=== PATIENT | male | born 1975 | race Two or more races ===

== ENCOUNTER 2019-09-22 05:54 | Inpatient (IN) | payer OTHER ==
--- NOTE | 2019-09-21 16:00 | NUR ---
[employer] translation services used to obtained medical history with machine bender Melo ID # [id number].
[2019-09-22] VITALS (18 sets, daily range): BP systolic 112–133; BP diastolic 65–78
[~2019-09-22] VITALS: Ht 165.1 cm; Wt 100.7 kg
[2019-09-22] MEDS ORDERED: fentaNYL 100 mcg/2 mL IV ONE (07:02)
[2019-09-22] MEDS ORDERED: Midazolam 2mg/2ml Inj ONE (07:02)
[2019-09-22] MEDS ORDERED: Lidocaine 1% MPF 10mg/ml 5ml ONE (07:03)
[2019-09-22] MEDS ORDERED: Succinylcholine 20mg/ml 10ml vial ONE (07:07)
[2019-09-22] MEDS ORDERED: Rocuronium Bromide 50mg/5ml Inj IV ONE (07:07)
[2019-09-22] MEDS ORDERED: Heparin 5000 units/ml inj ONE (07:21)
[2019-09-22] MEDS ORDERED: Thrombin 5000 units TOPIC ONE ×2 (07:21→07:22)
[2019-09-22] MEDS ORDERED: Gelfoam Size TOPIC ONE (07:22)
[2019-09-22] MEDS ORDERED: Bupivacaine w/Epi 0.5% 30ml Vial INJ ONE (07:22)
[2019-09-22] MEDS ORDERED: Bacitracin 50000 Units Vial ONE ×2 (07:22→10:22)
[2019-09-22] MEDS ORDERED: LR 1000ml ONE (07:30)
[2019-09-22] MEDS ORDERED: Propofol 1,000mg/ 100ml btl IV ONE (07:30)
[2019-09-22] MEDS ORDERED: Sterile Water Irrig 1000ml IRRIG ONE (07:30)
[2019-09-22] MEDS ORDERED: NS Irrig 1000ml ONE (07:30)
--- NOTE | 2019-09-22 07:45 | Pre-Procedure Note/Attestation ---
Pre-Procedure Note/Attestation Complete Prior to Procedure Planned Procedure: not applicable Procedure Narrative: L5-S1 fusion Indications for Procedure Pre-Operative Diagnosis: Disc pain Attestation I attest that I discussed the nature of the procedure; its benefits; risks and complications; and alternatives (and the risks and benefits of such alternatives ), prior to the procedure, with the patient (or the patient's legal billing representative). I attest that, if there was a reasonable possibility of needing a blood transfusion, the patient (or the patient's legal billing representative) was given the [facility] standardized written summary, pursuant to the [place] Blood Safety Act ([place] Health and Safety Code # 1645, as amended). I attest that I re-evaluated the patient just prior to the surgery and that there has been no change in the patient's H&P, except as documented below: ESTEPHANIA CELIS Sep 22, 2019 07:45
[2019-09-22] MEDS ORDERED: NS Irrig 1000ml IRRIG ONE ×3 (07:56→10:50)
--- NOTE | 2019-09-22 08:39 | Anethesia Preoperative Eval ---
Anesthesia Pre-op PMH/ROS General Date of Evaluation: Sep 22, 2019 Time of Evaluation: 07:20 Anesthesiologist: Fredis ASA Score: ASA 2 Mallampati Score Class I : Soft palate, uvula, fauces, pillars visible Class II: Soft palate, uvula, fauces visible Class III: Soft palate, base of uvula visible Class IV: Only hard plate visible Mallampati Classification: Class II Surgeon: Gravory Diagnosis: Lumbar radiculopathy Surgical Procedure: Anterior and posterior discectomy and fusion Anesthesia History: none Family History: no anesthesia problems Allergies: Coded Allergies: No Known Allergies (Unverified , 09/21/19) Medications: see eMAR Patient NPO?: Yes NPO Date: Sep 21, 2019 NPO Time: 1900 Past Medical History Cardiovascular: Denies: HTN, CAD, [place], valve dz, arrhythmia, other Pulmonary: Denies: asthma, COPD, YANY, other Gastrointestinal/Genitourinary: Reports: GERD - mild; Denies: CRI, ESRD, other Neurologic/Psychiatric: Reports: other - chronic pain; Denies: dementia, CVA, depression/anxiety, TIA Endocrine: Denies: DM, hypothyroidism, steroids, other HEENT: Denies: cataract (L), cataract (R), glaucoma, [place] RESERVATION (L), [place] RESERVATION (R), other Hematology/Immune: Denies: anemia, DVT, bleeding disorder, other Musculoskeletal/Integumentary: Denies: OA, RA, DJD, DDD, edema, other Other: other - overweight PMH Narrative: as above PSxH Narrative: None Anesthesia Pre-op Phys. Exam Physician Exam Last Vital Signs Date Time Temp Pulse Resp B/P (MAP) Pulse Ox O2 Delivery O2 Flow Rate FiO2 09/22/19 06:50 97.8 61 20 120/75 (90) 98 09/22/19 06:35 Room Air Constitutional: NAD Neurologic: CN 2-12 intact Cardiovascular: RRR, no M/R/G Respiratory: CTA Gastrointestinal: S/NT/ND Airway Exam Mallampati Score: Class II MO: full Neck: flexible ROM: full Teeth: missing Dentures: no upper, no lower Anesthesia Pre-op A/P Labs see chart Studies Pre-op Studies: EKG - NSR, CXR - WNL Risk Assessment & Plan Assessment: ASA 2 Plan: GA with ETT neuromonitoring Status Change Before Surgery: No Pre-Antibiotics Drug: Ancef 2gr. Given Within 1 Hr of Incision: Yes Time Given: 08:10 Abhay Mcneal MD Sep 22, 2019 08:39
[2019-09-22] MEDS ORDERED: Acetaminophen (Non formulary) 100 ML IV ONE (08:45)
[2019-09-22] MEDS ORDERED: Morphine Sulfate 10mg/ml Inj ONE (08:47)
[2019-09-22] MEDS ORDERED: Sodium Chloride 10ml vial INJ ONE (08:48)
[2019-09-22] MEDS ORDERED: Glycopyrrolate 0.2mg/ml 1ml Vial ONE (08:48)
[2019-09-22] MEDS ORDERED: Ketorolac 30mg Inj ONE (08:48)
[2019-09-22] MEDS ORDERED: LR 1000ml 1,000 ML IVLG SCH (10:37)
[2019-09-22] MEDS ORDERED: DiphenhydrAMINE 25mg Tab ORAL PRN (10:45)
[2019-09-22] MEDS ORDERED: Cyclobenzaprine 10mg Tab ORAL PRN (10:45)
[2019-09-22] MEDS ORDERED: Ketorolac 30mg Inj IV PRN (10:45)
[2019-09-22] MEDS ORDERED: HYDROmorphone 1mg/ml Carpuject SUBQ PRN (10:45)
[2019-09-22] MEDS ORDERED: HYDROcodone/Acetamin 10/325 tab ORAL PRN (10:45)
[2019-09-22] MEDS ORDERED: Meperidine 25mg/0.5ml Inj (FOR RIGORS ONLY) IV PRN (10:45)
[2019-09-22] MEDS ORDERED: oxyCODONE 5mg IR tab ORAL PRN ×2 (10:45→11:00)
[2019-09-22] MEDS ORDERED: Hydromorphone 0.5mg/0.5ml inj IVP PRN (10:45)
[2019-09-22] MEDS ORDERED: DiphenhydrAMINE 50mg/ml Inj IVP PRN (10:45)
[2019-09-22] MEDS ORDERED: Propofol 200mg/20ml IV ONE ×3 (10:53→12:34)
[2019-09-22] MEDS ORDERED: PCA HYDROmorphone 1mg/ml 30 ML IV PRN (11:45)
[2019-09-22] MEDS ORDERED: Rate Change PCA 1 Each MISC PRN (11:45)
--- NOTE | 2019-09-22 11:48 | NUR ---
CASE MANAGEMENT:REVIEW 43 YR OLD MALE HERE FOR ELECTIVE SURGERY SI: DISC PAIN 97.8 61 20 120/75 98% ON RA IS: TO SURGERY LUMBAR DISCECTOMY AND FUSION : CURRENTLY IN SURGERY
--- NOTE | 2019-09-22 13:10 | Brief Operative Note ---
Immediate Post Operative Note Operative Note Pre-op Diagnosis: Disc pain Procedure: L5-S1 ALIF and post fusion Post-op Diagnosis: LBP Post-op Diagnosis: same as pre-op Surgeon: Jacky Biggs Pole Maker: Elias Sales Additional Surgeons: Rashida Arias Anesthesiologist: Dr. Piña Anesthesia: general Specimen: none Complications: none Condition: stable Fluids: See anesthesia Estimated Blood Loss: volume - 100 Drains: none Implant(s) used?: Yes - Pedicla screws, Rods, ALIF Cage and screws, BMP ESTEPHANIA BIGGS Sep 22, 2019 13:10
--- NOTE | 2019-09-22 13:32 | Diagnostic Imaging Report ---
Indication: Intraoperative imaging COMPARISON: None FINDINGS: 2 fluoroscopic images were obtained intraoperatively. Images showing the L5-S1 fusion and discectomy. Fluoroscopic time 84 seconds. IMPRESSION: Intraoperative imaging as described above
--- NOTE | 2019-09-22 13:32 | Immediate Post-Op Evaluation ---
Immediate Post-Op Evalulation Immediate Post-Op Evalulation Procedure: L5-S1 anterior discectomy fusion and posterior pedicle screws fusion Date of Evaluation: Sep 22, 2019 Time of Evaluation: 13:31 IV Fluids: 1400 Blood Products: none Estimated Blood Loss: 100 Urinary Output: 150 Blood Pressure Systolic: 120 Blood Pressure Diastolic: 64 Pulse Rate: 72 Respiratory Rate: 20 O2 Sat by Pulse Oximetry: 98 Temperature (Fahrenheit): 98.4 Pain Score (1-10): 2 Nausea: No Vomiting: No Complications none Patient Status: reacts, patent, extubated, none Hydration Status: adequate Abhay Mcneal MD Sep 22, 2019 13:32
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
--- NOTE | 2019-09-22 15:35 | NUR ---
NURSE NOTES: REC'D FROM PACU SP L5-S1 ALIF , ANTERIOR LUMBAR DISCECTOMYAND FUSION. AWAKE / ALERT. VS TAKEN. PAIN SCALE 4/10. ABLE TO MOVE UPPER AND LOWER EXTREMITIES. ABD/ BACK DRESSING DRY AND INTACT. ICE PACK ON. ON EDGER MACHINE SETTER DILAUDID. INSTRUCTED TO PUSH PAIN BUTTON NEEDED FOR PAIN.IN NO DISTRESS.
[2019-09-22] MEDS: ceFAZolin sod 1 GM in D5W 55 ML IV SCH (16:30)
[2019-09-22] MEDS: Docusate 100mg cap ORAL SCH (17:28)
[2019-09-22] MEDS ORDERED: PCA Education Pamphlet MISC ONE (18:00)
--- NOTE | 2019-09-22 19:00 | NUR ---
NURSE NOTES: CONDITION STABLE . IN NO DISTRESS.
[2019-09-22] MEDS: PCA shift volume MISC SCH (19:27)
--- NOTE | 2019-09-22 19:30 | NUR ---
NURSE NOTES: Receive a report from CALI Siddiqui. Pt is awake and alert. No acute distress noted. On COUNTER INTELLIGENCE AGENT pump to control pain with eCO2 monitor and tolerating 2/10. Reeducate how to use COUNTER INTELLIGENCE AGENT pump. Surgery sites are clean and intact except abdomen site with saturated. Yellowish urine is patent via hearn catheter. On SCDs LE bilateral. Call light within reach. Will continue to monitor.
--- NOTE | 2019-09-22 19:52 | NUR ---
HAND-OFF: Report given to OH RN.
--- NOTE | 2019-09-22 20:00 | NUR ---
NURSE NOTES: No N/V noted. Encourage I/S every hour while awake and deep breathing and coughing. No gas passing yet and noted hypoactive BS. Will continue to monitor.
[2019-09-23] VITALS: BP 100/60
[2019-09-23] MEDS: ceFAZolin sod 1 GM in D5W 55 ML IV SCH ×2 (00:06→08:42)
[2019-09-23 04:00] VITALS: BP 106/62
[2019-09-23] MEDS: PCA shift volume MISC SCH ×2 (07:00→19:08)
--- NOTE | 2019-09-23 07:30 | NUR ---
HAND-OFF: Report given to CALI Viera. No acute distress. Pain is 3-4/10. Dressing sites kept dry and clean.
--- NOTE | 2019-09-23 07:30 | NUR ---
NURSE NOTES:bedside rounds done with faizan rn.pt. a/ox4,on 2liters n/c,pain level 3/10.on heating systems installer dilaudid,not passing gas yet,hypoactive bs.iv site patent,plan of care discussed with understanding.
[2019-09-23 08:00] VITALS: BP_SYST 106; BP_SYST 126; BP_DIAS 62; BP_DIAS 70
[2019-09-23] MEDS: Docusate 100mg cap ORAL SCH ×2 (08:41→18:53)
--- NOTE | 2019-09-23 09:23 | 48 Hour Post Anesthesia Eval ---
Post Anesthesia Evaluation Procedure: L5-S1 anterior discectomy fusion and posterior pedicle screws fusion Date of Evaluation: Sep 23, 2019 Time of Evaluation: 09:21 Blood Pressure Systolic: 106 0: 62 Pulse Rate: 64 Respiratory Rate: 20 Temperature (Fahrenheit): 97.9 O2 Sat by Pulse Oximetry: 100 Airway: patent Nausea: No Vomiting: No Pain Intensity: 3 Hydration Status: adequate Cardiopulmonary Status: Stable Mental Status/LOC: patient returned to baseline Follow-up Care/Observations: 0 Post-Anesthesia Complications: 0 Follow-up care needed: N/A Balaji Pñea MD Sep 23, 2019 09:22
[2019-09-23 12:00] VITALS: BP_SYST 104; BP_DIAS 62; BP_DIAS 63
--- NOTE | 2019-09-23 13:40 | NUR ---
NURSE NOTES:seen by dr. onofre aware re:lumbar brace not available yet,orders carried out.ambulated with pt with tolerance of 35 ft.abdominal/post surgical dressing intact.
[2019-09-23] MEDS ORDERED: HYDROcodone/Acetamin 10/325 tab ORAL PRN (14:03)
--- NOTE | 2019-09-23 14:15 | NUR ---
PT EVALUATION NOTE Patient seen for initial evaluation. Patient presents with impaired functional mobility due to pain s/p lumbar surgery. Patient instructed in back precautions and log roll technique. Patient requires mod assist for bed mobility using log roll technique and min assist for transfers with FWW. Patient able to ambulate 35 ft with CGA and FWW. Patient will benefit from skilled inpatient PT intervention to educate patient in proper mobility skills and compliance with back precautions for increased level of incependence with functional mobility. Anticipate discharge home with family assistance once medically cleared by MD. Recommend FWW for ambulation. Addendum: 09/23/19 at 1447 by SHAHRIAR MYRICK PT Amended: Links added.
[2019-09-23 16:00] VITALS: BP_SYST 104; BP_SYST 126; BP_DIAS 63; BP_DIAS 69
--- NOTE | 2019-09-23 16:45 | Progress Note ---
DATE: 09/23/2019 ACUTE PAIN MANAGEMENT PHYSICIAN PROGRESS NOTE MEDICATIONS: Medication administration record reviewed. Medications include Phenergan, oxycodone, Zofran, Narcan, Toradol, Dilaudid, [place], Pepcid, Colace, Benadryl, Flexeril, Mylanta, Fioricet, Tylenol. LABORATORY STUDIES: No interval laboratory studies. OBJECTIVE: VITAL SIGNS: T-max 99.6, which is the T current, pulse 68, respirations 20, blood pressure 104/62 oxygen saturation 100% on supplemental oxygen. I spent over 60 minutes in consultation today. I discussed the case with the surgeon, Dr. Biggs and Orthopedic floor nurse RN, Aylin. I also spoke with the physical therapist. has allowed the patient to ambulate out of bed with lumbar abdominal binder, until the rigid lumbar spine brace arrives. The patient appears neurologically intact. He has 5/5 dorsiflexion and 5/5 plantar flexion in bilateral lower extremities. The patient still remains NPO except for ice chips and medications while we continue to await improvement in bowel function. He is not yet passing flatus since his ALIF procedure. The patient denies nausea symptoms and does state that he is hungry. As soon as he passes flatus, we will start him on a liquid diet to test for tolerability. An incentive spirometer remains at the bedside to encourage good pulmonary toilet. I will continue his DIESEL PLANT OPERATOR unit for now, as his pain levels may increase significantly once he begins ambulating more frequently. I have provided the daughter a prescription for 40 tablets of [place] 10/325 for outpatient usage. The daughter was present at the bedside throughout today's interview, to translate Yakut with the patient. We will continue sequential compression pneumatic devices for DVT prophylaxis. The patient has very good social support with his , sister, and daughter all at the bedside. Trell Mishra M.D. DR: DEAN JOB#: [id number] CC:
--- NOTE | 2019-09-23 19:10 | NUR ---
NURSE NOTES: Received report from CALI Viera. Pt is awake, lying semi-araujo's; comfortably resting. Family at bedside. No signs of acute distress noted. Pt denies any pain at this time. AOx4; able to make needs known. Checked IV site, line, and rate; patent and running. No erythema, bleeding, or infiltration. Dressing intact. Bed at lowest position. Brakes on. Siderails up x2. Call light within reach. Will continue to monitor.
--- NOTE | 2019-09-23 19:14 | NUR ---
HAND-OFF: Report given to NASRIN SU.PT STABLE.
[2019-09-23 20:00] VITALS: BP 118/70
[2019-09-24] VITALS: BP 115/69
[2019-09-24 04:00] VITALS: BP 112/74
[2019-09-24] MEDS ORDERED: HYDROmorphone 1mg/ml Carpuject IVP PRN (06:00)
[2019-09-24] MEDS ORDERED: Tamsulosin 0.4mg cap ORAL SCH (06:00)
[2019-09-24] MEDS: PCA shift volume MISC SCH (07:00)
--- NOTE | 2019-09-24 07:30 | Progress Note ---
DATE: 09/24/2019 ACUTE PAIN MANAGEMENT PHYSICIAN PROGRESS NOTE MEDICATIONS: Medication administration record reviewed. Medications include IV fluids, Colace, Pepcid, Dilaudid IT SERVICE TECHNICIAN. P.r.n. medication include Fioricet, Benadryl, Zofran, Dilaudid IT SERVICE TECHNICIAN, Mylanta, Tylenol, Dilaudid, Phenergan, and [place]. LABORATORY STUDIES: No interval laboratory studies. OBJECTIVE: Vital signs within normal limits. Afebrile, pulse 68, respirations 20, blood pressure 112/74, oxygen saturation 100% on supplemental oxygen. I spent over 60 minutes in consultation today. I saw the patient at the bedside with the sister, who interpreted Thai. I discussed the case with Orthopedic floor nurse RN, Bertha, who is at the bedside along with the charge nurse RN, Aneglina. I discussed the case with the surgeon, Dr. Biggs, and the physical therapist. The patient began passing flatus overnight. He denies any nausea symptoms. I will begin decreasing his IV fluids and we will trial him on a clear liquid breakfast for tolerability. If this is tolerated, we will quickly advance him to full liquid for lunch time. I will start him on Colace b.i.d. to promote bowel regularity. The patient denies any nausea symptoms and is quite hungry. I examined the abdominal and posterior lumbar spine wounds. The dressings both appear dry and intact, without any need for dressing changes at this time. Yesterday, the patient ambulated well with physical therapy. Since, the patient does have stairs at home, I spoke with the physical therapist and we will insure that the patient is cleared by physical therapy for ambulation and walking up and down stairs prior to the patient's discharge to the home. I spoke with an outpatient [facility] pharmacist to help expedite dispensing of quantity of 40 [place] tablets, which I provided the daughter yesterday. This prescription was filled and is available now for home usage. The patient is currently using an abdominal binder for back support, and Dr. Biggs is contacting county attorney's office to dispense a lumbar spine rigid brace to the patient. We will see how the patient advances with physical therapy with his advancing of diet to see if he is a candidate for discharge back home to [place] later today, if cleared by physical therapy. Otherwise, the patient will continue to remain in the hospital with supportive care until we decide the patient is medically cleared and cleared by physical therapy. The patient agrees with the plan. Trell Mishra M.D. DR: MAMTA JOB#: [id number] CC:
--- NOTE | 2019-09-24 07:50 | NUR ---
NURSE NOTES: Patient is in bed awake and able to verbalize needs. Stable. Denies pain or SOB. Family is at bedside. Patient instructed to use call light for assistance, verbalized understanding. Plan of care discussed with patient and family. Patient is in bed in locked and lowest position with call light within reach. All needs met at this time. Will continue to monitor.
--- NOTE | 2019-09-24 07:50 | NUR ---
HAND-OFF: Report given to CALI Nickerson. Pt is awake and in stable condition. Plan of care endorsed.
[2019-09-24 08:00] VITALS: BP 116/71
[2019-09-24] MEDS ORDERED: Docusate 100mg cap ORAL SCH (09:00)
--- NOTE | 2019-09-24 09:20 | NUR ---
PT NOTE Recommend FWW and raised toilet seat for home use, Liya LEIVA notified.
--- NOTE | 2019-09-24 10:30 | NUR ---
NURSE NOTES: fww and raised toilet seat at bedside.
--- NOTE | 2019-09-24 10:40 | NUR ---
NURSE NOTES: RN assisted patient to bathroom without incident. Patient able to void. no c/o burning or discomfort. Yellow urine noted. Patient assisted back to bed without incident.
--- NOTE | 2019-09-24 11:39 | NUR ---
NURSE NOTES: back brace given to patient.
[2019-09-24 12:00] VITALS: BP 126/73
--- NOTE | 2019-09-24 12:30 | NUR ---
NURSE NOTES: Patient tolerated full liquid diet. No c/o nausea or abdominal discomfort noted at this time. Patient encouraged to ambulate, patient verbalized understanding. Patient encouraged to use I/S.
--- NOTE | 2019-09-24 13:47 | NUR ---
DISCHARGE PLANNED: BACK BRACE ORDERED AND DELIVERED TO PATIENT BEDSIDE [facility] TO DELIVER T: [phone] PATIENT MAY DC HOME
--- NOTE | 2019-09-24 13:51 | NUR ---
CASE MANAGEMENT:REVIEW 09/23/19 SI: S/P LUMBAR DISCECTOMY AND FUSION 97.7 103 21 126/73 97% ON RA IS: PEPCID PO BID COLACE PO BID : 3E MED SURG UNIT PLAN: PT SUSANNE YOON START ON CLEAR LIQ DIET
[2019-09-24] MEDS ORDERED: Tubing IV Secondary IV ONE (14:44)
--- NOTE | 2019-09-24 15:00 | NUR ---
NURSE NOTES: Patient discharged home as ordered. Stable. Denies pain or SOB. Patient and family members were given thorough discharge instructions, patient verbalized understanding. Patient was given written discharge instructions in taiwanese and verbally acknowledged discharge instructions. Patient was given thorough medication teaching with written instructions in taiwanese and patient's family given medication teaching as well. Patient has all belongings. Patient's medication given to patient. Patient's IV removed. Surgical dressing c/d/i. No dressing change ordered, all post-op information given to patient. Patient's skin is c/d/i. Patient assisted downstairs by RN without incident.
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
--- NOTE | 2019-09-24 21:15 | Operative Note - Dictated ---
DATE OF OPERATION: 09/22/2019 PREOPERATIVE DIAGNOSIS: Degenerative disk disease, lumbosacral spine. POSTOPERATIVE DIAGNOSIS: Degenerative disk disease, lumbosacral spine. PROCEDURES: 1. Anterior retroperitoneal exposure, interbody fusion, lumbosacral spine, L5-S1. Surgeon is Dr. Arias. Co-surgeon is Dr. Biggs. 2. Ligation of the middle sacral artery and vein. Surgeon is Dr. Arias. Assistant Director Of Plant Operations is Dr. Biggs. 3. Revision of the right common iliac artery and vein. Surgeon is Dr. Arias. Assistant Director Of Plant Operations is Dr. Biggs. 4. Mobilization of the left common iliac artery and vein. Surgeon Dr. Arias. Assistant Director Of Plant Operations is Dr. Biggs. SURGEON: Juliano Arias M.D. CO-SURGEON: Dr. Biggs. ANESTHESIA: General. EBL: 200 mL. OPERATIVE NOTE: Risks, benefits, complications, alternative therapies, high-risk nature of the operation explained to the patient. Consent obtained. Risks and benefits have been explained to the patient included, but not limited to bleeding, infection, damage to bowel, damage to ureter, wound infection, wound dehiscence, DVT, PE, loss of limb, loss of life, high-risk nature of the operation fully explained and stressed to the patient and family. All questions answered. Possibility of retrograde ejaculation fully explained. OPERATIVE TECHNIQUE: The patient was placed in supine position, prepped and draped in usual sterile fashion. I made an 8 cm incision in the left lower quadrant in horizontal fashion. Incision was taken down to the subcutaneous tissue, which was then opened using electrocautery. Left anterior rectus sheath was opened in the direction of the wound. A Bookwalter retractor was placed. I entered the retroperitoneal space and incised the posterior sheath at about 2 cm superiorly. I then proceeded with the dissection of the left common iliac artery and vein, external iliac artery and vein. I dissected the middle sacral vessels. The middle sacral vessels were ligated using titanium clips. The right common iliac artery and vein were dissected and mobilized to the right and left common iliac artery and vein were dissected and mobilized to the left. We proceeded with a diskectomy and placement of a new cage. Please refer to Dr. Biggs's dictation for the details of that operation. After all the x-rays were satisfactory, read by Dr. Gravori, the needle count and sponge count was correct, the wound was irrigated using antibiotic solution. Anterior rectus sheath was closed using #1 Vicryl suture in a running fashion with interrupted sutures in the middle. The wound was irrigated again and closed in 2 layers of 2-0 Vicryl suture for the subcutaneous and Steri-Strips for the skin. Juliano Arias MD DR: Verenice JOB#: [id number] CC:
--- NOTE | 2019-09-24 22:00 | Discharge Summary ---
DATE OF ADMISSION: 09/22/2019 DATE OF DISCHARGE: 09/24/2019 ADMITTING PHYSICIAN/SURGEON: Lisa Biggs M.D. CONSULTING PHYSICIAN: Trell Mishra M.D. ADMITTING DIAGNOSIS: Lumbar disc spine disease. DISCHARGE DIAGNOSIS: Lumbar disc spine disease. HOSPITAL COURSE: The patient was admitted for elective lumbar spine fusion surgery with instrumentation on September 22, 2019. The patient underwent an uneventful lumbar spine fusion surgery in the operating room and was transferred in stable condition to the recovery room. The patient did well in recovery room and was transferred to the Orthopedic nursing floor unit in stable condition. Serial monitoring was performed with neurologic status along with vital signs. The pain was adequately controlled using PONY EDGER Dilaudid and other modalities. The patient advanced well with physical therapy training and congregational of bowel function. The patient was discharged to home in the care of his family with instructions to follow up with the surgeon for outpatient followup within the next two weeks. There were no complications. Trell Mishra M.D. DR: Gwen JOB#: [id number] CC:
== END 2019-09-24 14:45 | disposition home or self-care (01) | DRG 460 ==
LOC: SDSOVERFLO 06:01 → 3E 15:30
PROC: 0SG30A0 Fusion of Lumbosacral Joint with Interbody Fusion Device, Anterior Approach, Anterior Column, Open Approach (ICD-10-PCS; principal; 2019-09-22 07:30)
PROC: 0SB40ZZ Excision of Lumbosacral Disc, Open Approach (ICD-10-PCS; principal; 2019-09-22 07:30)
PROC: 3E0U0GB Introduction of Recombinant Bone Morphogenetic Protein into Joints, Open Approach (ICD-10-PCS; principal; 2019-09-22 07:30)
DX: M51.17 Intervertebral disc disorders with radiculopathy, lumbosacral region (principal); G89.18 Other acute postprocedural pain; V89.2XXS Person injured in unspecified motor-vehicle accident, traffic, sequela; E66.9 Obesity, unspecified; M48.061 Spinal stenosis, lumbar region without neurogenic claudication
CPT/HCPCS: 36415; 72020; 76000; 86850; 86900; 86901; 87081; 94003; 94150; J2180; J2250